=== PATIENT | female | born 1975 | race Caucasian/White ===

== ENCOUNTER 2019-04-21 18:39 | Emergency (ER) | payer OTHER, BC ==
[~2019-04-21] VITALS: Ht 172.7 cm; Wt 73.0 kg
[2019-04-21] MEDS ORDERED: KEFLEX500 MG PO (20:28)
[2019-04-21] MEDS ORDERED: IBUPROFEN600 MG PO (20:28)
[2019-04-21 21:10] VITALS: BP 122/78
== END 2019-04-21 21:15 | disposition home or self-care (01) | DRG 605 ==
LOC: ED 18:39
PROC: 0HQDXZZ Repair Right Lower Arm Skin, External Approach (ICD-10-PCS; principal; 2019-04-21)
DX: S51.011A Laceration without foreign body of right elbow, initial encounter (principal); F17.210 Nicotine dependence, cigarettes, uncomplicated; V22.4XXA Motorcycle driver injured in collision with two- or three-wheeled motor vehicle in traffic accident, initial encounter